=== PATIENT | male | born 1995 | race Caucasian/White ===

== ENCOUNTER 2021-07-28 11:57 | Emergency (ER) | payer OTHER ==
[~2021-07-28 11:57] MED LIST: AUGMENTIN 875-1 EACH PO; CYCLOBENZAPRINE10 MG PO; IBUPROFEN800 MG PO; NAPROSYN500 MG PO
[2021-07-28 13:10] LABS: HEMOGLOBIN 15.2 gm/dl (14.0-17.5); RED BLOOD COUNT 5.1 M/UL (4.20-5.50); WHITE BLOOD COUNT 9.6 K/UL (4.5-11.0)
[2021-07-28 13:28] LABS: BUN/CREATININE RATIO 17 (0-10)
== END 2021-07-28 15:16 | disposition home or self-care (01) ==
LOC: ER1 11:57
PROVIDERS: Physician Assistant
DX: R10.9 Unspecified abdominal pain (principal); R10.811 Right upper quadrant abdominal tenderness; R10.814 Left lower quadrant abdominal tenderness; Z20.822 Contact with and (suspected) exposure to COVID-19; F17.210 Nicotine dependence, cigarettes, uncomplicated; Z88.0 Allergy status to penicillin
CPT/HCPCS: 80053; 81001; 83690; 85025; 85652; 86140; 87086; 96374; 96375; 99284; J2270; J2405; J7030; Q9967; U0002

== ENCOUNTER 2021-10-22 21:22 | Emergency (ER) | payer OTHER ==
[2021-10-22] MEDS ORDERED: OMNICEF 300 MG300 MG PO (21:38)
[2021-10-22] MEDS ORDERED: LODINE CAP 300300 MG PO (21:38)
== END 2021-10-22 21:45 ==
LOC: ER1 21:22
DX: H66.93 Otitis media, unspecified, bilateral (principal); Z88.0 Allergy status to penicillin
CPT/HCPCS: 99282